=== PATIENT | female | born 1980 | race Caucasian/White ===

== ENCOUNTER 2018-11-24 17:09 | Emergency (ER) | payer BC ==
[2018-11-24 21:15] VITALS: BP 147/92
[2018-11-24] MEDS ORDERED: Cephalexin CAP* 500 MG PO ONE (21:39)
--- NOTE | 2018-11-24 21:39 | UC ---
Lower Extremity/Ankle HPI - HPI Summary HPI Summary: 38-year-old female presents with complaints of left second toe redness, pain, and swelling yesterday. States 2 days ago she accidentally cut the top of the toe while shaving and then later that day she was at a wedding and states she was doing a lot of dancing and had consumed a lot of alcohol and is unsure whether she may have sustained any other injury to the toe. She has been able to walk and bear weight. Denies fever, chills, purulent drainage, numbness, tingling. - History of Current Complaint Chief Complaint: UCLowerExtremity Stated Complaint: LT FOOT-2ND TOE INJURY Time Seen by Provider: 11/24/18 21:08 Hx Obtained From: Patient Hx Last Menstrual Period: 11/16/18 Pain Intensity: 2 - Allergies/Home Medications Allergies/Adverse Reactions: Allergies Allergy/AdvReac Type Severity Reaction Status Date / Time No Known Allergies Allergy Verified 11/24/18 21:15 Home Medications: Home Medications Dextroamphetamine/Amphetamine [Adderall Xr 20 mg Capsule] 1 tab PO BID 11/24/18 [History Confirmed 11/24/18] Fexofenadine (NF) [Talia 180 (NF)] 1 tab PO BID 11/24/18 [History Confirmed ] LORazepam TAB(*) [Ativan 1 MG TAB (*)] 1 - 2 mg PO BEDTIME PRN 11/24/18 [ History Confirmed 11/24/18] Valacyclovir HCl [Valtrex] 1 tab PO DAILY PRN 11/24/18 [History Confirmed ] PMH/Surg Hx/FS Hx/Imm Hx Previously Healthy: Yes Psychological History: Anxiety, Other - ADHD - Surgical History Surgical History: Yes Surgery Procedure, Year, and Place: T&A 1988 - Family History Known Family History: Positive: Non-Contributory - Social History Occupation: Employed Full-time Lives: With Family Alcohol Use: Occasionally Substance Use Type: Marijuana Substance Use Comment - Amount & Last Used: daily Smoking Status (MU): Never Smoked Tobacco Review of Systems All Other Systems Reviewed And Are Negative: Yes Constitutional: Negative: Fever, Chills Skin: Negative: Bruising Respiratory: Positive: Negative Cardiovascular: Positive: Negative Gastrointestinal: Positive: Negative Genitourinary: Positive: Negative Motor: Negative: Weakness Neurovascular: Negative: Decreased Sensation Musculoskeletal: Positive: Other: - See HPI Neurological: Positive: Negative Is Patient Immunocompromised?: No Physical Exam - Summary Physical Exam Summary: GENERAL APPEARANCE: Well developed, well nourished, alert and cooperative, and appears to be in no acute distress. CARDIAC: Normal S1 and S2. No S3, S4 or murmurs. Rhythm is regular. There is no peripheral edema, cyanosis or pallor. Extremities are warm and well perfused. Capillary refill is less than 2 seconds. Peripheral pulses intact. LUNGS: Clear to auscultation without rales, rhonchi, wheezing or diminished breath sounds. ABDOMEN: Positive bowel sounds. Soft, nondistended, nontender. No guarding or rebound. No masses or hepatosplenomegally. MUSKULOSKELETAL: Normal muscular development. Normal gait. EXTREMITIES: Tenderness to 2nd left toe with mild erythema and edema. Small superficial crusted abrasion noted to the dorsal toe over the PIP. Full ROM. Circulation and sensation intact. SKIN: Skin normal color, texture and turgor. Triage Information Reviewed: Yes Vital Signs: Initial Vital Signs Temp 97.9 F 11/24/18 21:07 Pulse 80 11/24/18 21:07 Resp 16 11/24/18 21:07 BP 147/92 11/24/18 21:07 Pulse Ox 100 11/24/18 21:07 Vital Signs Reviewed: Yes Images Feet (Multiple View): 1 - Superficial crusted abrasion Diagnostics - Radiology No standard instances Radiology Interpretation Completed By: ED Physician Summary of Radiographic Findings: No acute fracture or dislocation Lower Extremity Course/Dx - Course Course Of Treatment: 38-year-old female presents with complaints of left second toe redness, pain, and swelling yesterday. States 2 days ago she accidentally cut the top of the toe while shaving and then later that day she was at a wedding and states she was doing a lot of dancing and had consumed a lot of alcohol and is unsure whether she may have sustained any other injury to the toe. She has been able to walk and bear weight. Denies fever, chills, purulent drainage, numbness, tingling. Afebrile. Hypertensive of his vital signs stable. Patient had tenderness to 2nd left toe with mild erythema and edema. Small superficial crusted abrasion noted to the dorsal toe over the PIP. Full ROM. Circulation and sensation intact. Preliminary x-ray reading showed no acute fracture or dislocation. Discussed findings with patient. I suspect that her symptoms are more likely a cellulitis secondary to the open wound on the top of her toe and a recommending that we start her on antibiotics at this time. She is to take cephalexin 500 mg 3 times a day 5 days. She was given a first dose in the clinic. She is to use [id number] analgesics as needed for pain. She is to follow-up with primary care provider in 3-5 days if symptoms are not improving. Anticipatory guidance warning symptoms reviewed with the patient. Verbalized understanding and agrees with plan of care. - Differential Dx/Diagnosis Differential Diagnosis/HQI/PQRI: Cellulitis, Contusion, Dislocation, Fracture ( Closed), Sprain Provider Diagnosis: Cellulitis of second toe of left foot Discharge ED - Sign-Out/Discharge Documenting (check all that apply): Patient Departure All imaging exams completed and their final reports reviewed: No - Discharge Plan Condition: Stable Disposition: HOME Prescriptions: Cephalexin CAP* [Keflex 500 CAP*] 500 mg PO TID #9 cap Patient Education Materials: Cellulitis (ED) Referrals: Wade Telles MD [Primary Care Provider] - 3 Days Additional Instructions: The x-ray performed in the clinic today showed no evidence of a fracture. I suspect that you may have a skin infection called cellulitis secondary to the small cut on your toe. We will start you on an antibiotic to treat the infection. Take cephalexin 500 mg 3 times a day for 5 days. You were given the first dose in the clinic. Elevate the foot to help reduce swelling. Take acetaminophen (Tylenol) or ibuprofen (Advil, Motrin) according to directions as needed for pain. Follow up with your primary care provider in 3-5 days if symptoms do not improve. Seek immediate medical attention if you have severe pain not managed with pain medication, you are unable to walk or bear any weight, or have any worsening of symptoms. - Billing Disposition and Condition Condition: STABLE Disposition: Home
--- NOTE | 2018-11-25 08:40 | UC ---
- Progress Note Progress Note: xray left 2nd toe: IMPRESSION: NO EROSION OR PERIOSTEAL REACTION. NO ACUTE OSSEOUS INJURY. PLAIN RADIOGRAPH FINDINGS OF OSTEOMYELITIS ARE RELATIVELY LATE FINDINGS. IF THERE IS PERSISTENT CLINICAL CONCERN FOR OSTEOMYELITIS, RECOMMEND CORRELATION WITH FOLLOWUP IMAGING, THREE-PHASE BONE SCANNING, WHITE BLOOD CELL SCAN, AND/OR MRI OF THE AFFECTED REGION. Course/Dx - Diagnoses Provider Diagnoses: Cellulitis of second toe of left foot Discharge ED - Sign-Out/Discharge Documenting (check all that apply): Patient Departure All imaging exams completed and their final reports reviewed: Yes - Discharge Plan Condition: Stable Disposition: HOME Prescriptions: Cephalexin CAP* [Keflex 500 CAP*] 500 mg PO TID #9 cap Patient Education Materials: Cellulitis (ED) Referrals: Wade Telles MD [Primary Care Provider] - 3 Days Additional Instructions: The x-ray performed in the clinic today showed no evidence of a fracture. I suspect that you may have a skin infection called cellulitis secondary to the small cut on your toe. We will start you on an antibiotic to treat the infection. Take cephalexin 500 mg 3 times a day for 5 days. You were given the first dose in the clinic. Elevate the foot to help reduce swelling. Take acetaminophen (Tylenol) or ibuprofen (Advil, Motrin) according to directions as needed for pain. Follow up with your primary care provider in 3-5 days if symptoms do not improve. Seek immediate medical attention if you have severe pain not managed with pain medication, you are unable to walk or bear any weight, or have any worsening of symptoms. - Billing Disposition and Condition Condition: STABLE Disposition: Home
== END 2018-11-24 21:50 | disposition home or self-care (01) ==
LOC: UCCORT 17:09
DX: L03.032 Cellulitis of left toe (principal); F90.9 Attention-deficit hyperactivity disorder, unspecified type
CPT/HCPCS: 99202; A9270-GY; G0463